=== PATIENT | female | born 1975 | race Caucasian/White ===

== ENCOUNTER → 2019-02-18 | Outpatient (CLI) | payer OTHER | LOC: M.ULTRA 14:20 | DX: R10.11 Right upper quadrant pain (principal); R10.2 Pelvic and perineal pain; R11.0 Nausea; Z90.710 Acquired absence of both cervix and uterus; Z87.42 Personal history of other diseases of the female genital tract; Z88.8 Allergy status to other drugs, medicaments and biological substances ==